=== PATIENT | female | born 1980 | race Hispanic/Latino ===

== ENCOUNTER 2025-02-17 01:32 | Emergency (ER) | payer SELFPAY ==
[2025-02-17 01:43] VITALS: BP 140/100
[2025-02-17 02:33] VITALS: BMI 30.6
[2025-02-17 02:54] LABS: % Basophils 0.3 % (0-2); % Eosinophils 0.7 % (0-6); % Immature Granulocytes 0.4 % (0-0.5); % Lymphocytes 7.8 % (20.5-51.1); % Monocytes 6.2 % (1.7-9.3); % Neutrophils 84.6 % (42.2-75.2); Absolute Eosinophils 0.1 10^3/uL (0-0.7); Absolute Immature Granulocytes 0.1 10^3/uL (0-0.05); Absolute Lymphocytes 1.1 10^3/uL (1.2-3.4); Absolute Monocytes 0.9 10^3/uL (0.1-0.6); Hematocrit 37.7 % (37.0-47.0); Hemoglobin 12.8 g/dL (12.0-16.0); Mean Corpuscular Hgb 27.3 pg (27.0-31.0); Mean Corpuscular Volume 80.4 fL (81.0-99.0); Mean Platelet Volume 9.8 fL (7.4-10.4); Nucleated Red Blood Cells % 0 %; Platelet Count 315 10^3/uL (130-400); Red Blood Cell Count 4.69 10^6/uL (4.20-5.40); Red Cell Dist. Width 13.6 % (11.5-14.5); White Blood Cell Count 14.1 10^3/uL (4.8-10.8)
--- NOTE | 2025-02-17 02:58 | ED.GENMED ---
History of Present Illness
General
Chief Complaint: Abdominal Pain
Source: patient
Exam Limitations: none
Time Seen by Provider: 02/17/25 02:30
Nursing documentation reviewed up to this point in time: agreed with
History of Present Illness
History of Present Illness:
44-year-old female presenting to the emergency department today with concerns of nausea vomiting diarrhea over the past few hours also has a mild headache. Mostly crampy upper abdominal pain. No fevers chest pain shortness of breath.
Review of Systems
Review of Systems
Allergies reviewed?: Yes
All Other Systems: ROS reviewed and negative except as documented in HPI and ROS
Phy Exam
Physical Exam
Physical Exam:
GENERAL: Alert , in no apparent distress
EYE: pupils equal and reactive
NECK: Supple, no significant adenopathy.
ENT: o/p clr, mmm.
CARDIAC: Regular rate and rhythm .
LUNGS: Clear breath sounds bilaterally, no acute respiratory distress, no wheezes/rales/rhonchi
ABDOMEN: Vague diffuse abdominal pain to palpation no focal pain
NEUROLOGICAL: Alert and oriented, no focal neuro deficits
SKIN: Warm and dry, skin intact.
MUSCULOSKELETAL: No edema, well perfused.
PSYCH: Normal and appropriate interaction.
Course
Orders/Labs/Results
Orders:
Orders
02/17/25 02:37
CMP [Comprehensive Metabolic Panel] Urgent
Complete Blood Count/With Diff Urgent
HCG, Serum Qualitative Screen Urgent
Comment: ADD ON
Lipase Urgent
02/17/25 02:47
Add On- LAB Urgent
Tests Added?: lipase, hcg qual serum
02/17/25 02:56
CT Abd/Pel (IV only)-DH only Urgent
Comment:
Reason For Exam: diffuse abd pain
Urinalysis Reflex To Culture Urgent
Diphenhydramine [Benadryl] 25 mg IV NOW STA
Metoclopramide [Reglan] 10 mg IV NOW STA
02/17/25 02:57
0.9% Sodium Chloride 1000 ml [Nss] 1,000 ml IV BOLUS
Abnormal Lab Results
02/17/25
02:37
WBC 14.1 H 10^3/uL
(4.8-10.8)
MCV 80.4 L fL
(81.0-99.0)
Abs Immat Gran (auto) 0.1 H 10^3/uL
(0-0.05)
Absolute Neuts (auto) 12.0 H 10^3/uL
(1.4-6.5)
Absolute Lymphs (auto) 1.1 L 10^3/uL
(1.2-3.4)
Absolute Monos (auto) 0.9 H 10^3/uL
(0.1-0.6)
Neutrophils % 84.6 H %
(42.2-75.2)
Lymphocytes % 7.8 L %
(20.5-51.1)
Chloride 108 H mmol/L
(98-107)
BUN 22 H mg/dl
(7-17)
Glucose 118 H mg/dl
(70-99)
02/17/25 02:37
02/17/25 02:37
Vital Signs
Initial and Last Documented VS:
Initial Vital Signs
Temp Pulse Resp BP Pulse Ox
99.6 F 108 20 140/100 98
02/17/25 01:43 02/17/25 01:43 02/17/25 01:43 02/17/25 01:43 02/17/25 01:43
Last Documented Vital Signs
Temp Pulse Resp BP Pulse Ox
99.6 F 108 20 140/100 98
02/17/25 01:43 02/17/25 01:43 02/17/25 01:43 02/17/25 01:43 02/17/25 01:43
MDM/Problems Addressed
MDM/Problems Addressed:
44-year-old female presenting with concerns of nausea and vomiting that had a small mount of diarrhea as well has been persistent over the past few hours does have associated headache. Mildly tachycardic on arrival. Plan symptomatic medications as
well as fluids. Does have reproducible abdominal pain considering this plan to get a CT scan for further assessment. CT scan without emergent findings. Labs without emergent findings as well p.o. Feeling much better after receiving fluids and
Zofran stable for outpatient management return precautions given.
*Critical Care Note
Total Time (30-74mins, 75-104mins- exclusive of procedures): Not Applicable
ED Attending Note
-
Portions of this chart may have been created with voice recognition software.� Occasional wrong word or��sound alike� substitutions may have occurred due to the inherent limitations of voice recognition software.
Discharge Plan
Departure
Patient Disposition: Home (Routine Discharge)
Date of Disposition: 02/17/25
Time of Disposition: 05:05
Patient with high blood pressure during this ER visit?: No
Condition: Good
Covid-19: Not Applicable
Discharge Problem:
Vomiting
Instructions: Nausea and Vomiting, Adult (DC)
Prescriptions:
New
ondansetron 4 mg tablet,disintegrating
4 mg PO Q6H PRN (Reason: nausea and vomiting) Qty: 7 0RF
Referrals:
UNKNOWN - PT DOES,NOT KNOW [Family Provider]
Activity Restrictions/Additional Instructions:
You came to the emergency department today with concerns of vomiting. Here you had a reassuring assessment. Please take the prescribed nausea medication and hydrate at home. Return for any worsening, new or concerning symptoms.
Interventions
Interventions:
*Risk Screen - Suicide Last Done: 02/17/25 02:33
*General Assessment Last Done: 02/17/25 01:34
*Neglect/Abuse Screening Last Done: 02/17/25 01:34
*ED- Fall Risk Assessment Last Done: 02/17/25 01:34
*ED COVID-19 Vaccine History Last Done: 02/17/25 01:34
BZ-Rsgfbu-Vitzxzudcm Assessment Last Done: 02/17/25 02:27
Discharge Date and Time
Print Language: NEPALESE
[2025-02-17] MEDS: NSS 1000 IV (03:07)
[2025-02-17] MEDS: REGLAN 10 MG IV (03:11)
[2025-02-17] MEDS: BENADRYL 25 MG IV (03:11)
[2025-02-17 03:12] LABS: HCG, Serum Qualitative Screen Negative
[2025-02-17 03:14] LABS: ALT (SGPT) 15 U/L (0-35); AST (SGOT) 19 U/L (14-36); Albumin 4.5 g/dl (3.5-5.0); Alkaline Phosphatase 95 U/L (38-126); Blood Urea Nitrogen 22 mg/dl (7-17); Calcium 9.2 mg/dl (8.4-10.2); Carbon Dioxide 23 mmol/L (22-30); Chloride 108 mmol/L (98-107); Estimated Creatinine Clearance 79 ml/min; Glucose 118 mg/dl (70-99); Lipase 96 U/L (23-300); Potassium 3.7 mmol/L (3.5-5.1); Sodium 143 mmol/L (135-145); Total Bilirubin 0.4 mg/dl (0.2-1.3); Total Protein 7.4 g/dl (6.3-8.2); eGFR > 60.00
[2025-02-17 05:30] VITALS: BP 104/68
[2025-02-17 05:41] VITALS: BP 104/68
== END 2025-02-17 05:43 | disposition home or self-care (01) ==
LOC: EMR 01:32
PROVIDERS: EMERGENCY PHYSICIAN Student in an Organized Health Care Education/Training Program
DX: R11.2 Nausea with vomiting, unspecified (principal); R10.10 Upper abdominal pain, unspecified; R19.7 Diarrhea, unspecified; R51.9 Headache, unspecified
CPT/HCPCS: 99284; 96374; 96375; 74177; 80053; 83690; 84703; 85025; Q9967